=== PATIENT | female | born 1985 | race Caucasian/White ===

== ENCOUNTER 2022-10-03 16:57 | Emergency (ER) | payer MEDICAID ==
[~2022-10-03] VITALS: Ht 167.6 cm; Wt 84.0 kg
[2022-10-03 17:05] VITALS: BP 122/71
[2022-10-03 19:06] LABS: BASOPHILS % 0.8 % (0.0-2.0); EOSINOPHILS % 2.1 % (0.0-5.0); HEMATOCRIT. 39.1 % (36.0-48.0); LYMPHOCYTES % 38.3 % (20.0-50.0); MEAN CORPUSCULAR HEMOGLOBIN 28.4 pg (28.0-32.0); MEAN CORPUSCULAR VOLUME 85.3 fL (81.0-99.0); MONOCYTES % 6.3 % (2.0-8.0); NEUTROPHILS % 52.5 % (40.0-76.0); PLATELET 372 x1000/uL (130-400); RED BLOOD CELL COUNT 4.58 mill/uL (4.2-5.4); RED CELL DISTRIBUTION WIDTH 15.5 % (11.6-14.6)
[2022-10-03 19:09] LABS: CHLORIDE 105 mEq/L (98-107)
[2022-10-03 19:18] LABS: ETHANOL BLOOD < 10 mg/dL
[2022-10-03 19:20] LABS: HCG SCREEN NEGATIVE
[2022-10-04] MEDS ORDERED: IBUP-2028 MT (01:14)
== END 2022-10-03 18:49 | disposition left against medical advice (07) ==
LOC: ER 16:57
DX: R10.30 Lower abdominal pain, unspecified (principal); F41.9 Anxiety disorder, unspecified
CPT/HCPCS: 36415; 80053; 80320; 84703; 85025; 99283; G0480

== ENCOUNTER 2022-10-03 21:44 | Emergency (ER) | payer MEDICAID ==
[~2022-10-03] VITALS: Ht 167.6 cm; Wt 120.0 kg
[2022-10-03] MEDS ORDERED: KETOROLAC 60MG/2ML VIAL IM STA (22:35)
[2022-10-03 23:03] LABS: BASOPHILS % 0.6 % (0.0-2.0); HEMATOCRIT. 36.1 % (36.0-48.0); HEMOGLOBIN. 11.9 g/dL (12.0-16.0); LYMPHOCYTES % 34.3 % (20.0-50.0); MEAN CORPUSCULAR VOLUME 84.4 fL (81.0-99.0); MEAN PLATELET VOLUME 8.3 fl (7.4-10.4); MONOCYTES % 7.1 % (2.0-8.0); PLATELET 362 x1000/uL (130-400); RED BLOOD CELL COUNT 4.27 mill/uL (4.2-5.4); RED CELL DISTRIBUTION WIDTH 15.6 % (11.6-14.6)
[2022-10-03 23:09] LABS: CHLORIDE 111 mEq/L (98-107)
[2022-10-04 00:37] LABS: CLARITY URINE CLEAR (CLEAR); COLOR URINE YELLOW (YELLOW); KETONES URINE NEGATIVE (NEGATIVE); LEUKOCYTE ESTERASE URINE NEGATIVE (NEGATIVE); NITRITE URINE NEGATIVE (NEGATIVE); OCCULT BLOOD URINE NEGATIVE (NEGATIVE); PH URINE 5.5 (4.5-8.0); PROTEIN URINE 1+ (NEGATIVE); SPECIFIC GRAVITY URINE 1.022 (1.005-1.030); UROBILINOGEN URINE 0.2 E.U./dL (0.2-1.0)
[2022-10-04] MEDS ORDERED: KETOROLAC 60MG/2ML VIAL IM NR (00:45)
[2022-10-04 00:48] VITALS: BP 112/71
[2022-10-04] MEDS ORDERED: IBUP-2028 MT (01:14)
== END 2022-10-04 02:04 | disposition home or self-care (01) ==
LOC: ER 21:44
DX: N83.202 Unspecified ovarian cyst, left side (principal); D36.9 Benign neoplasm, unspecified site; F41.9 Anxiety disorder, unspecified
CPT/HCPCS: 36415; 74176; 80053; 81003; 81025; 83690; 85025; 96372; 99285; J1885; 99284